=== PATIENT | male | born 1965 | race Caucasian/White ===

== ENCOUNTER 2020-09-13 06:52 | Outpatient (NON) | payer BC, SELFPAY ==
[2020-09-14 17:16] LABS: SARS-CoV-2 RNA PCR Negative
== END 2020-09-13 06:53 ==
PROVIDERS: PCP Family Medicine; Visit Provider Nurse Practitioner Family
DX: Z20.822 Contact with and (suspected) exposure to COVID-19 (principal); J34.89 Other specified disorders of nose and nasal sinuses
CPT/HCPCS: C9803; U0003; U0005

== ENCOUNTER → 2021-02-10 07:29 | Outpatient (CLI) | payer OTHER, SELFPAY ==
--- NOTE | ~2021-02-10 | XR_ITS ---
EXAMINATION: XR shoulder RT min 2V DATE: 02/10/2021 07:46 INDICATION: Right shoulder pain TECHNIQUE: AP internally and externally rotated, AP oblique externally rotated and axillary views of the right shoulder were obtained. COMPARISON: None FINDINGS: Normal alignment. No fracture.Mild joint space narrowing at the right glenohumeral joint consistent with mild osteoarthritis. Minimal acromioclavicular osteoarthritis. Soft tissues are unremarkable. Vi sualized portions of the right lung are clear. IMPRESSION: Right glenohumeral and minimal acromioclavicular osteoarthritis. Reviewed, dictated and finalized at location A.
== END ==
PROVIDERS: PCP Family Medicine; Visit Provider Physician Assistant Medical
DX: M19.011 Primary osteoarthritis, right shoulder (principal)
CPT/HCPCS: 73030

== ENCOUNTER → 2021-05-30 09:32 | Outpatient (CLI) | payer OTHER, SELFPAY ==
--- NOTE | ~2021-05-30 | MR_ITS ---
EXAMINATION: MR shoulder RT wo con DATE: 05/30/2021 10:42 INDICATION: Right shoulder pain TECHNIQUE: Magnetic resonance imaging (MRI) of the right shoulder was performed without intravenous c ontrast. Sequences included axial PD-weighted FS FSE, coronal oblique PD-weighted FS FSE, coronal obl ique T2-weighted FS FSE, sagittal PD-weighted FS FSE, and sagittal T1-weighted SE. COMPARISON: None. FINDINGS: Coracoacromial arch: The acromion undersurface is curved in morphology (type II). The coracoacromial ligament is normal. M ild acromioclavicular osteoarthritis. Rotator cuff: Mild to moderate tendinopathy without discrete tear of the subscapularis, supraspinatus and infraspin atus tendons. Teres minor tendon is normal. Normal rotator cuff muscle bulk and signal. Biceps tendon, glenoid labrum and glenohumeral cartilage: Long head of the biceps tendon is normal. Circumferential tear of the glenoid labrum which inferiorly has a macerated appearance with multiple small para labral cysts along the posterior inferior labrum . There is partial thickness cartilage loss along the glenoid most severe at the posterosuperior quad rant of the glenoid where it involves greater than 50% the cartilage thickness. Degenerative subartic ular cyst at the 10:30 position of the rim of the glenoid. Additional extensive partial-thickness car tilage loss along the humeral head most prominent at the superomedial aspect of the humeral head invo lves greater than 50% the cartilage thickness and without degenerative subchondral changes. Fluid: Physiologic amount of fluid in the glenohumeral joint and biceps tendon sheath. No loose osteochondra l bodies. Mild increased fluid signal in the subacromial/subdeltoid bursa consistent with mild bursit is. Bones: Small low signal intensity bone island at the coracoid process. Normal marrow signal with no edema, f racture or abnormal marrow replacing process. IMPRESSION: 1. Moderate glenohumeral osteoarthritis with diffuse tearing of the glenoid labrum. 2. Mild to moderate tendinopathy without discrete tear of the subscapularis, supraspinatus and infras pinatus tendons. 3. Mild acromioclavicular osteoarthritis. 4. Mild subacromial/subdeltoid bursitis. Reviewed, dictated and finalized at location A. IMPRESSION: 1. Moderate glenohumeral osteoarthritis with diffuse tearing of the glenoid lab rum. 2. Mild to moderate tendinopathy without discrete tear of the subscapularis, jeffery praspinatus and infraspinatus tendons. 3. Mild acromioclavicular osteoarthritis. 4. Mild subacromial/subdeltoid bursitis.
== END ==
PROVIDERS: PCP Family Medicine; Visit Provider Physician Assistant Medical
DX: M75.51 Bursitis of right shoulder (principal); M19.011 Primary osteoarthritis, right shoulder; M75.101 Unspecified rotator cuff tear or rupture of right shoulder, not specified as traumatic; S46.911A Strain of unspecified muscle, fascia and tendon at shoulder and upper arm level, right arm, initial encounter
CPT/HCPCS: 73221

== ENCOUNTER → 2021-08-17 08:24 | Outpatient (CLI) | payer OTHER, SELFPAY ==
[2021-08-17 20:56] LABS: SARS-CoV-2 RNA PCR Negative
== END ==
PROVIDERS: PCP Family Medicine; Visit Provider Nurse Practitioner Family
DX: Z20.822 Contact with and (suspected) exposure to COVID-19 (principal)
CPT/HCPCS: C9803; U0003; U0005

== ENCOUNTER 2022-01-19 16:34 | Emergency (ER) | payer OTHER, SELFPAY ==
[2022-01-19 17:00] VITALS: BP 131/91; PULSE 86; RESP 20; TEMP 36.3; O2SAT 95
--- NOTE | 2022-01-19 17:28 | ED.URI ---
HPI - URI/Sore Throat General Chief Complaint: Upper Respiratory Infection Stated Complaint: cough/gallego/fever/body aches Time Seen by Provider: 01/19/22 17:28 Source: patient Mode of arrival: ambulatory Limitations: no limitations History of Present Illness HPI Narrative: 56-year-old male presents with complaint of headache, congestion, cough, fatigue, low-grade fever for 2 to 3 days. Is taking [id number] medications and Tylenol to treat his symptoms. Reports temperature today was 100.6. Denies nausea vomiting diarrhea. Denies chest pain and shortness of breath. All systems reviewed and negative except as noted above. Related Data Allergies Allergy/AdvReac Type Severity Reaction Status Date / Time GENEVIEVE Inhibitors Allergy Unknown Unknown Verified 08/21/21 16:22 Beta-Blockers Allergy Unknown Unknown Verified 08/21/21 16:22 (Beta-Adrenergic Bloc Review of Systems Review of Systems: CONSTITUTIONAL: Reports fever, chills, or sweats. EYES: Denies visual changes, redness, or discharge. ENT: Reports rhinorrhea, congestion. Denies sore throat, or otalgia. CARDIOVASCULAR: Denies chest pain, palpitations, or edema. RESPIRATORY: Reports cough. Denies dyspnea. GASTROINTESTINAL: Denies abdominal pain, nausea, vomiting, or diarrhea. GENITOURINARY: Denies dysuria or hematuria. SKIN: Denies rash or itching. MUSCULOSKELETAL: Denies back pain, joint pain, or myalgia. NEUROLOGIC: Denies headache, numbness, or weakness. PSYCHIATRIC: Denies anxiety or depression. All other systems reviewed are negative, except as documented in HPI. 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 Gender identity (if verbalized by the patient): Male Comments At time of signature, agree with nursing past medical, surgical, social and family history. There is no relevant family history pertinent to the presenting complaint. Exam Narrative: GENERAL: This is a well-nourished, well-developed patient, in no apparent distress. HEAD: normocephalic, atraumatic. EYES: PERRL. Sclera clear/white. Vision is grossly intact. EARS: External ears normal, auditory canals clear and without drainage, TMs normal without perforation. Hearing grossly intact. NOSE: External nose normal with clear nasal drainage. THROAT: Mucous membranes moist, posterior pharynx clear. NECK: Neck supple, non-tender without lymphadenopathy, masses or thyromegaly. CARDIOVASCULAR: Regular rate and rhythm without murmurs, gallops, or rubs. RESPIRATORY: Clear to auscultation. Breath sounds equal bilaterally. No wheezes, rales, or rhonchi. SKIN: warm, Dry, intact with no suspicious lesions or rash, good texture and turgor. NEURO: awake, alert, and oriented to person, place and time. There were no obvious focal neurologic abnormalities. EXTREMITIES: No joint tenderness, effusion, or edema noted. Course Course Level of Care: Express Care Visit Vital Signs Vital signs: Vital Signs Temperature 36.3 C L 01/19/22 17:00 Pulse Rate 86 01/19/22 17:00 Respiratory Rate 20 01/19/22 17:00 Blood Pressure 131/91 H 01/19/22 17:00 Pulse Oximetry 95 01/19/22 17:00 Oxygen Delivery Room Air 01/19/22 17:00 Temperature 36.3 C L 01/19/22 17:00 Pulse Rate 86 01/19/22 17:00 Respiratory Rate 20 01/19/22 17:00 Blood Pressure 131/91 H 01/19/22 17:00 Pu
== END 2022-01-19 17:44 | disposition home or self-care (01) ==
PROVIDERS: Emergency Provider Nurse Practitioner Family; PCP Family Medicine
DX: U07.1 COVID-19 (principal)
CPT/HCPCS: 87426; 99213; C9803; G0463

== ENCOUNTER 2023-04-05 14:40 | Emergency (ER) | payer OTHER, SELFPAY ==
[2023-04-05 14:50] VITALS: BP 146/92; PULSE 93; RESP 16; TEMP 36.9; O2SAT 100
--- NOTE | 2023-04-05 14:55 | ED.URI ---
HPI - URI/Sore Throat General Chief Complaint: Upper Respiratory Infection Stated Complaint: Ear Irritation/Throat Time Seen by Provider: 04/05/23 14:56 Source: patient, RN notes reviewed and old records reviewed Mode of arrival: ambulatory Limitations: no limitations History of Present Illness HPI Narrative: 58 year old male presents to [facility] care with complaints of sore throat for the past 2 days with headache. Patient reports that he called his physician and told him he was having the headache and sore throat and his physician ordered Levaquin but he reports that he doesn't feel comfortable taking this medication because of the possible tendon side effects. Patient reports that he can't take Claritin or Zyrtec more that 2 days because he gets nose bleeds from medication. Patient reports that he only has one day left of Augmentin antibiotic that was previously ordered by his physician for sinus infection. Home COVID done which was negative this morning. MD elicited complaint: sore throat and other (headache) Pertinent past history: sinusitis Onset (ago): day(s) (2) Pain scale (0-10): 8 Able to tolerate fluids by mouth: Yes Treatments prior to arrival: ibuprofen, antibiotics and other Related Data Allergies Allergy/AdvReac Type Severity Reaction Status Date / Time GENEVIEVE Inhibitors Allergy Unknown Unknown Verified 04/05/23 15:10 Beta-Blockers Allergy Unknown Unknown Verified 04/05/23 15:10 (Beta-Adrenergic Bloc Review of Systems Review of Systems: CONSTITUTIONAL: Reports malaise,no chills, sweats, or fever. EYES: Denies visual changes, redness, or discharge. ENT: Reports rhinorrhea, congestion, sinus pain, otalgia and sore throat. CARDIOVASCULAR: Denies chest pain, palpitations, or edema. RESPIRATORY: Reports no cough.? Denies dyspnea. GASTROINTESTINAL: Denies abdominal pain, nausea, vomiting, diarrhea SKIN: Denies rash or itching. MUSCULOSKELETAL: Denies myalgia. NEUROLOGIC: Reports headache. All systems reviewed & are unremarkable except as noted in HPI and below PMFSH Past Medical History Medical History Abnormal MRI, shoulder BMI 29.0-29.9,adult BMI 30.0-30.9,adult Kidney stone Staph infection Surgical History Surgical History History of third molar tooth extraction Family History Family History Unknown Hypertension Hyperlipemia Father Hypertension Brain tumor Mother Hypertension Carcinoma of colon Sibling Colon polyp Hypertension Social History Social History Smoking status: Never smoker Second hand tobacco smoke exposure: Yes Alcohol intake: current Substance use: never Substance use type: does not use Lack of Transportation: No Lack of Food: Never True Current Housing: I Have Housing Concerned About Future Housing: No Difficulty Paying Gas/Electric Bills: No Difficulty Paying for Meds: No Currently Unemployed: No Education: Trade/Vocational Certificate Living arrangements: with family Occupation/Education: occupation 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 Gender identity (if verbalized by the patient): Male Comments At time of signature, agree with nursing past medical, surgical, social and family history. There is no relevant family history pertinent to the presenting complaint Exam Narrative: GENERAL: Well-appearing, well-nourished, and in no acute distress. HEAD: Normocephalic EYES: PERRLA, conjunctivae clear ENT: Nares clear, turbinates edematous and erythematous, clear to yellow discharge. Mucous membranes moist. TM pearly aviles with dull light reflex bilaterally; no tragal tenderness. Oropharynx erythematous without lesions. Tonsils red enlarged and without exudate, no drooling, no h
== END 2023-04-05 15:45 | disposition home or self-care (01) ==
PROVIDERS: Emergency Provider Registered Nurse; PCP Family Medicine
DX: J32.9 Chronic sinusitis, unspecified (principal); J02.9 Acute pharyngitis, unspecified
CPT/HCPCS: 87081; 87880; 99213; G0463

== ENCOUNTER 2025-08-01 17:55 | Emergency (ER) | payer OTHER, SELFPAY ==
[2025-08-01 18:10] VITALS: BP 151/86; PULSE 95; RESP 18; TEMP 37.4; O2SAT 97
--- NOTE | 2025-08-01 18:15 | ED.URI ---
HPI - URI/Sore Throat General Chief Complaint: Upper Respiratory Infection Stated Complaint: headache/cough/sore throat Time Seen by Provider: 08/01/25 18:04 Source: patient and RN notes reviewed Mode of arrival: ambulatory Limitations: no limitations History of Present Illness HPI Narrative: 60-year-old male patient with history of hypertension presents today complaining of a 2 day history of cough productive cough, postnasal drip, nasal congestion, body aches, headache, sore throat, fever up to 102. He has been taking Coricidin without much relief and currently rates his pain 8/10. No history of asthma or COPD. Denies any known sick contacts. Related Data Allergies Allergy/AdvReac Type Severity Reaction Status Date / Time GENEVIEVE Inhibitors Allergy Unknown Unknown Verified 08/01/25 17:56 Beta-Blockers Allergy Unknown Unknown Verified 08/01/25 17:56 (Beta-Adrenergic Bloc PMFSH Past Medical History Medical History Overweight with body mass index (BMI) of 28 to 28.9 in adult BMI 29.0-29.9,adult Abnormal MRI, shoulder BMI 30.0-30.9,adult Kidney stone Staph infection Surgical History Surgical History History of third molar tooth extraction Family History Family History Unknown Hypertension Hyperlipemia Father Hypertension Brain tumor Mother Hypertension Carcinoma of colon Sibling Colon polyp Hypertension Social History Social History Smoking status: Never smoker Second hand tobacco smoke exposure: Yes Alcohol intake: current Substance use: never Substance use type: does not use Lack of Transportation: No Lack of Food: Never True Current Housing: I Have Housing Concerned About Future Housing: No Difficulty Paying Gas/Electric Bills: No Difficulty Paying for Meds: No Currently Unemployed: No Education: Trade/Vocational Certificate Living arrangements: with family Occupation/Education: occupation 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 Gender identity (if verbalized by the patient): Male Comments At time of signature, I have reviewed and agree with nursing past medical, surgical, social and family history unless otherwise noted. Please see nursing chart for further information. There is no relevant family history pertinent to the presenting complaint Exam Narrative: GENERAL: Mildly ill-appearing, well-nourished, and in no acute distress. HEAD: Normocephalic, atraumatic. EYES: EOMI. No redness or drainage. Conjunctivae normal. ENT: Mucous membranes pink and moist. Nares congested with rhinorrhea. TMs normal bilaterally. Throat mildly erythematous without edema or exudate. Uvula midline. NECK: Normal AROM. Supple. No lymphadenopathy. CHEST: No respiratory distress. Clear to auscultation. HEART: Regular rate and rhythm. No murmur appreciated. EXTREMITIES: Normal range of motion. No edema. SKIN: Warm, dry, no rash. Capillary refill normal. Normal skin turgor. NEURO: No focal deficits. Alert and oriented x3. Gait steady. PSYCH: Normal affect. No signs of depression or anxiety. Course Course Level of Care: Express Care Visit Vital Signs Vital signs: Vital Signs Temperature 99.4 F 08/01/25 18:10 Pulse Rate 95 08/01/25 18:10 Respiratory Rate 18 08/01/25 18:10 Blood Pressure 151/86 H 08/01/25 18:10 Pulse Oximetry 97 08/01/25 18:10 Oxygen Delivery Room Air 08/01/25 18:10 Temperature 99.4 F 08/01/25 18:10 Pulse Rate 95 08/01/25 18:10 Respiratory Rate 18 08/01/25 18:10 Blood Pressure 151/86 H 08/01/25 18:10 Pulse Oximetry 97 08/01/25 18:10 Oxygen Delivery Room Air 08/01/25 18:10 Reviewed MDM MDM Narrative Medical decision making narrative: 60-year-old male patient with history of hypertension presents today complaining of a 2 day history of cough productive cough, postnasal drip, nasal congestion, body aches, headache, sore throat, fever up to 102. He has been taking Coricidin without much relief and currently rates his pain 8/10. No history of asthma or COPD. Denies any known sick contacts. Upon exam, patient is mildly ill appearing with nasal congestion, rhinorrhea, and a mildly erythematous throat. Rapid strep negative culture pending. Influenza and COVID negative. Symptoms likely viral in etiology. Discussed [id number] medication use and duration of illness. No prescription medications indicated at this time. Anticipatory guidance given. Patient agrees with plan. Vital signs stable. Differential Diagnosis Differential Diagnosis: URI, pharyngitis, strep throat, influenza, COVID, pneumonia Lab Data MDM Lab Attestation statement: I personally reviewed the patient's lab results. Lab results narrative: Influenza and COVID Labs: Lab Results 08/01/25 Range/Units 18:11 POC Grp A Strep Screen Negative (Negative) Critical Care Time Critical Care Time Critical Care Time: No Discharge Plan Discharge Clinical Impression: Upper respiratory infection Qualifiers: URI type: unspecified URI Qualified Code(s): J06.9 - Acute upper respiratory infection, unspecified Patient Disposition: Home Condition: Stable Instructions: Upper Respiratory Infection (DC) Additional Instructions: Your COVID-19, influenza, and rapid strep swab or negative today at [facility]. You will be notified in a few days if the culture comes back positive for strep, and appropriate antibiotics will be called in for you at that time. Your symptoms are likely due to a viral illness, which is not treated with antibiotics. Viral symptoms can be present for up to 7-10 days. Take Tylenol or ibuprofen for fever or pain. Rest and stay hydrated. Follow up with your PCP in 7 days if symptoms are not improving. Go to the ER immediately if you have any difficulty breathing or swallowing. Patient Language: Cymraes Prescriptions: No Action cholecalciferol (vitamin D3) 1,250 mcg (50,000 unit) capsule 1,250 mcg PO WEEKLY Qty: 8 0RF hydrochlorothiazide 12.5 mg capsule 12.5 mg PO DAILY Qty: 90 3RF amlodipine 10 mg tablet 10 mg PO DAILY Qty: 90 2RF meloxicam 15 mg tablet 15 mg PO DAILY Qty: 90 1RF cyclobenzaprine 10 mg tablet 10 mg PO TID PRN (Reason: muscle spasm) Qty: 90 0RF losartan 100 mg tablet See Rx Instructions .ROUTE .COMPLEX Qty: 90 2RF Dose Instruction: Take 1 tablet by mouth once daily Rx Instructions: Take 1 tablet by mouth once daily Follow-up/Referrals: Jose Yee MD [Primary Care Provider, [facility]] Time of Disposition: 18:28
[2025-08-01 18:21] LABS: EDSTREPNEGPOS1 Negative (Negative)
[2025-08-01 18:28] LABS: EDCOVIDSCREEN Negative (Negative); EDINFLUASCREEN Negative (Negative); EDINFLUBSCREEN Negative (Negative)
== END 2025-08-01 18:40 | disposition home or self-care (01) ==
PROVIDERS: Emergency Provider Nurse Practitioner; PCP Family Medicine
DX: J06.9 Acute upper respiratory infection, unspecified (principal); Z20.822 Contact with and (suspected) exposure to COVID-19
CPT/HCPCS: 87081; 87426; 87804; 87880; 99213; G0463